=== PATIENT | female | born 1995 | race African-American/Black ===

== ENCOUNTER 2025-05-02 20:22 | Emergency (ER) | payer MEDICAID ==
[~2025-05-02] VITALS: Ht 170.2 cm; Wt 52.0 kg
[2025-05-02 20:48] VITALS: TEMP 36.9; O2SAT 100
[2025-05-02] MEDS ORDERED: DIPHENHYDRAMINE 50MG CAPSULE PO ONE (21:15)
[2025-05-02] MEDS: DEXAMETHASONE 10 MG/ML VIAL IM ONE (21:33)
[2025-05-02] MEDS: DIPHENHYDRAMINE 25MG CAPSULE PO NR (21:37)
[2025-05-02] MEDS ORDERED: EPIN0.3P3 IM (22:23)
[2025-05-02 22:55] VITALS: BP 116/71; PULSE 58; RESP 16; O2SAT 100
== END 2025-05-02 22:58 | disposition home or self-care (01) ==
LOC: ER 20:22 → CMPBEDREQ 05-03 19:33
DX: T78.19XA Other adverse food reactions, not elsewhere classified, initial encounter (principal); X58.XXXA Exposure to other specified factors, initial encounter; Z91.018 Allergy to other foods
CPT/HCPCS: 99282; Q0163; Z7610; J1100